=== PATIENT | female | born 1985 | race Two or more races ===

== ENCOUNTER 2017-12-16 17:47 | Emergency (ER) | payer MEDICAID, OTHER ==
[~2017-12-16] VITALS: Ht 165.1 cm; Wt 69.0 kg
[2017-12-16 18:26] LABS: BASOPHILS # (AUTO) 0.03 x10^3/uL (0-0.1); BASOPHILS % (AUTO) 0 % (0-1); EOSINOPHILS # (AUTO) 0.15 x10^3/uL (0-0.4); EOSINOPHILS % (AUTO) 2 % (1-7); LYMPHOCYTES # (AUTO) 2.99 x10^3/uL (1-3.4); LYMPHOCYTES % (AUTO) 30 % (22-44); MD NO; MEAN CORPUSCULAR HEMOGLOBIN 30.8 pg (27.0-34.8); MEAN CORPUSCULAR HGB CONC 33.8 g/dL (32.4-35.8); MEAN CORPUSCULAR VOLUME 91.1 fL (80-100); MEAN PLATELET VOLUME 5.9 fL (7.4-10.4); MONOCYTES # (AUTO) 0.53 x10^3/uL (0.2-0.8); MONOCYTES % (AUTO) 5 % (2-9); NEUTROPHILS # (AUTO) 6.29 x10^3/uL (1.8-6.8); NEUTROPHILS % (AUTO) 63 % (42-75); PLATELET COUNT 380 x10^3/uL (130-400); RED CELL DISTRIBUTION WIDTH 12.1 % (9.6-15.2)
[2017-12-16 18:40] LABS: ALBUMIN 4.1 g/dL (3.4-5.0); ANION GAP 7 mmol/L (5-15); CALCIUM 9.3 mg/dL (8.5-10.1); CHLORIDE 108 mmol/L (98-107)
[2017-12-16 18:44] LABS: ALANINE AMINOTRANSFERASE 17 U/L (12-78); ALKALINE PHOSPHATASE 62 U/L (45-117); BILIRUBIN,TOTAL 0.9 mg/dL (0.2-1.0); CREATININE 0.88 mg/dL (0.55-1.02); TOTAL PROTEIN 8.4 g/dL (6.4-8.2)
[2017-12-16] MEDS ORDERED: DICYCLOMINE 20 MG TABLET PO ONE (19:30)
[2017-12-16] MEDS ORDERED: DIPHENHYDRAMINE 25 MG CAPSULE PO ONE (19:30)
[2017-12-16] MEDS ORDERED: DIPHENHYDRAMINE 25 MG CAPSULE ONE (19:34)
[2017-12-16] MEDS ORDERED: DICYCLOMINE 20 MG TABLET ONE (19:34)
[2017-12-16] MEDS ORDERED: AMPH20CA7 PO (19:53)
[2017-12-16] MEDS ORDERED: GABA400C PO (19:53)
[2017-12-16] MEDS ORDERED: CITA40TA5 PO (19:53)
[2017-12-16] MEDS ORDERED: XANAX (19:53)
[2017-12-16] MEDS ORDERED: TRAM50TA2 PO (19:54)
[2017-12-16 20:13] LABS: CULTURE INDICATED? YES; MICROSCOPIC INDICATED
[2017-12-16] MEDS ORDERED: MORPHINE SULFATE 4 MG/ML, 1ML IVPush PRN (21:00)
[2017-12-16] MEDS ORDERED: SODIUM CHLORIDE FLUSH 10ML SYR IVF ONE ×2 (21:00)
[2017-12-16] MEDS ORDERED: OMNIPAQUE 350 MG/ML, 100ML BOTTLE ONE (21:04)
[2017-12-16 21:39] VITALS: BP 139/91
== END 2017-12-16 22:32 | disposition home or self-care (01) ==
LOC: ED 22:26
DX: R10.84 Generalized abdominal pain (principal); T78.49XA Other allergy, initial encounter; N30.90 Cystitis, unspecified without hematuria; M06.9 Rheumatoid arthritis, unspecified; M54.30 Sciatica, unspecified side; X58.XXXA Exposure to other specified factors, initial encounter
CPT/HCPCS: 36415; 74177; 80053; 81001; 83690; 84703; 85025; 87086; 99285; J7512; Q0163; Q9967; 87077; 87186

== ENCOUNTER 2018-03-03 14:39 | Emergency (ER) | payer MEDICAID ==
[~2018-03-03] VITALS: Ht 165.1 cm; Wt 70.0 kg
[~2018-03-03 14:39] MED LIST: AMPH20CA7 PO; CITA40TA5 PO; GABA400C PO; TRAM50TA2 PO; XANAX
[2018-03-03 14:46] VITALS: BP 117/77
[2018-03-03] MEDS ORDERED: KETOROLAC 30 MG/1 ML ONE (15:40)
[2018-03-03] MEDS ORDERED: DIAZEPAM 5 MG/ML, 10ML VIAL IM ONE (16:00)
[2018-03-03] MEDS ORDERED: KETOROLAC 30 MG/1 ML IM ONE (16:00)
[2018-03-03 16:17] LABS: MICROSCOPIC AUTO
[2018-03-03 16:20] LABS: CULTURE INDICATED? YES
== END 2018-03-03 17:01 | disposition home or self-care (01) ==
LOC: ED 16:35
DX: S76.011A Strain of muscle, fascia and tendon of right hip, initial encounter (principal); M06.9 Rheumatoid arthritis, unspecified; M54.5 Low back pain; X58.XXXA Exposure to other specified factors, initial encounter; Y93.89 Activity, other specified; Y92.89 Other specified places as the place of occurrence of the external cause; Y99.8 Other external cause status
CPT/HCPCS: 72110; 73502; 81001; 87086; 96372; 99285; J1885; J3360

== ENCOUNTER 2018-09-15 14:15 | Emergency (ER) | payer MEDICAID ==
[~2018-09-15] VITALS: Ht 167.6 cm; Wt 76.9 kg
--- NOTE | 2018-09-15 14:24 | NUR ---
C-COLLAR APPLIED IN TRIAGE
--- NOTE | 2018-09-15 15:46 | NUR ---
C COLLAR REMOVED PER MD ORDER. PT RESTING ON GURNEY. ALL CONCERNS ADRESSED. NADN. AWAITING FURTHER ORDERS.
[2018-09-15 16:57] VITALS: BP 134/82
--- NOTE | 2018-09-15 17:00 | NUR ---
Patient/Caregiver given discharge instructions and they have confirmed that they understand the instructions. Patient ambulatory with steady gait. PT TO BE TAKEN HOME BY FAMILY MEMBERS. PT LEFT WITH ALL PERSONAL BELONGINGS.
== END 2018-09-15 17:01 | disposition home or self-care (01) ==
LOC: ED 16:48
DX: S06.9X1A Unspecified intracranial injury with loss of consciousness of 30 minutes or less, initial encounter (principal); S16.1XXA Strain of muscle, fascia and tendon at neck level, initial encounter; M06.9 Rheumatoid arthritis, unspecified; W18.30XA Fall on same level, unspecified, initial encounter; Y93.K1 Activity, walking an animal; Y92.410 Unspecified street and highway as the place of occurrence of the external cause; Y99.8 Other external cause status
CPT/HCPCS: 70450; 72125; 99284